=== PATIENT | male | born 1960 | race Caucasian/White ===

== ENCOUNTER 2017-10-09 10:47 | Day surgery (SDC) | payer OTHER ==
[~2017-10-09 10:47] MED LIST: BUPIVACAINE HCL 0.75% INJ/PF (7.5 MG/1 ML) 10 ML SDV ONE; CHONDR SU A NA/HYALUR INTRAOC KIT (SURGICARE) ONE; EPINEPHRINE INJ/PF 1 MG/1 ML AMPULE ONE; HYALURONIDASE INJ 150 UNIT/1 ML VIAL ONE; KETOROLAC TROMETHAMINE 0.45% 4 DROP/0.4 ML DROPERETTE OD PRN; LIDOCAINE 1%/PHENYLEPHRINE 1.5% 1 ML VIAL ONE; LIDOCAINE 2% INJ (20 MG/ML) 20 ML MDV ONE; TETRACAINE HCL 0.5% OPH SOLN 2 ML OD PRN; TOBRAMYCIN SULFATE/DEXAMETH OPH OINTMENT 3.5 GM ONE; TRYPAN BLUE 0.06 % OPH SOLN 0.5 ML DISP.SYRIN ONE
[2017-10-09] MEDS: TROPICAMIDE 1% OPH SOLN 3 ML OD PRN ×2 (11:19→13:02)
[2017-10-09] MEDS: CYCLOPENTOLATE 0.2%/PHENYLEPHRINE 1% OPH SOLN 2 ML OD PRN ×2 (11:19→13:02)
[2017-10-09] MEDS: BESIFLOXACIN HCL 0.6% OPH SUSP 5 ML BOTTLE OD PRN ×2 (11:20→13:03)
[2017-10-09] MEDS ORDERED: MIDAZOLAM 2 MG/2 ML INJ ONE ×2 (12:53→13:06)
== END 2017-10-09 14:12 | disposition home or self-care (01) ==
LOC: SC 10:47
PROVIDERS: ATTEND Internal Medicine
DX: H25.89 Other age-related cataract (principal); Z79.1 Long term (current) use of non-steroidal anti-inflammatories (NSAID); M06.9 Rheumatoid arthritis, unspecified; I10 Essential (primary) hypertension; E66.9 Obesity, unspecified; H54.8 Legal blindness, as defined in USA
CPT/HCPCS: J0171; J2250; J2370; J3470; J3490

== ENCOUNTER 2017-10-09 14:25 | Emergency (ER) | payer OTHER ==
--- NOTE | 2017-10-09 15:43 | ER Document Report ---
ED Medical Screen (RME) - General Chief Complaint: Blood Pressure Problem Stated Complaint: HIGH BLOOD PRESSURE Time Seen by Provider: 10/09/17 15:38 Mode of Arrival: Ambulatory Information source: Patient Notes: 57-year-old presented to ED for cataract surgery. When he got to the surgery center they would not do his surgery because he had blood pressure of 2010 129. States that when he went to the eye doctor to 3 weeks ago blood pressure was perfect according to the eye doctor. He states he did have her blood pressure about 25 years ago but has not been to a doctor recently and does not have a primary care doctor. He states he does have shoulder and knee pain that he has been eaten Aleve like candy. I attempted to redo the blood pressure and it was 240/139. I have greeted and performed a rapid initial assessment of this patient. A comprehensive ED assessment and evaluation of the patient, analysis of test results and completion of medical decision making process will be conducted by an additional ED providers. TRAVEL OUTSIDE OF THE [place] IN LAST 30 DAYS: No - Related Data Allergies/Adverse Reactions: No Known Allergies Allergy (Verified 10/09/17 15:37) Past Medical History - Social History Chew tobacco use (# tins/day): No Frequency of alcohol use: Occasional Drug Abuse: None - Past Medical History Cardiac Medical History: Reports: Hx Hypertension - NO CURRENT MEDS Denies: Hx Heart Attack Pulmonary Medical History: Denies: Hx Asthma Neurological Medical History: Denies: Hx Cerebrovascular Accident, Hx Seizures Renal/ Medical History: Denies: Hx Peritoneal Dialysis GI Medical History: Denies: Hx Hepatitis, Hx Hiatal Hernia, Hx Ulcer Infectious Medical History: Denies: Hx Hepatitis Past Surgical History: Denies: Hx Open Heart Surgery, Hx Pacemaker Physical Exam - Vital signs Vitals: Temp Pulse Resp BP Pulse Ox 97.8 F 81 18 201/129 H 95 10/09/17 14:34 10/09/17 14:34 10/09/17 14:34 10/09/17 14:34 10/09/17 14:34 Course - Vital Signs Vital signs: Temp Pulse Resp BP Pulse Ox 97.8 F 81 18 201/129 H 95 10/09/17 14:34 10/09/17 14:34 10/09/17 14:34 10/09/17 14:34 10/09/17 14:34
[2017-10-09 16:35] LABS: ABSOLUTE BASOPHILS # (AUTO) 0.1 10^3/uL (0.0-0.2); ABSOLUTE EOSINOPHILS # (AUTO) 0.3 10^3/uL (0.0-0.6); ABSOLUTE LYMPHOCYTES (AUTO) 1.7 10^3/uL (0.5-4.7); ABSOLUTE MONOCYTES (AUTO) 0.5 10^3/uL (0.1-1.4); BASOPHILS % (AUTO) 1.7 % (0-2); EOSINOPHILS % (AUTO) 5.1 % (0-6); HEMOGLOBIN 14.7 g/dL (13.5-17.0); LYMPHOCYTES % (AUTO) 25.2 % (13-45); MEAN CORPUSCULAR HEMOGLOBIN 30.9 pg (27.0-33.4); MEAN CORPUSCULAR HGB CONC 34.9 g/dL (32.0-36.0); MEAN CORPUSCULAR VOLUME 89 fl (80-97); MONOCYTES % (AUTO) 7.5 % (3-13); PLATELET COUNT 199 10^3/uL (150-450); RED BLOOD COUNT 4.75 10^6/uL (4.35-5.55); RED CELL DISTRIBUTION WIDTH 14.1 % (11.5-14.0); SEGMENTED NEUTROPHILS % (AUTO) 60.5 % (42-78); TOTAL CELLS COUNTED % (AUTO) 100 %; WHITE BLOOD COUNT 6.6 10^3/uL (4.0-10.5)
[2017-10-09 16:45] LABS: APPEARANCE,URINE SLIGHTLY-CLOUDY; BILIRUBIN,URINE NEGATIVE (NEGATIVE); COLOR,URINE YELLOW; GLUCOSE, URINE NEGATIVE (NEGATIVE); KETONES,URINE NEGATIVE (NEGATIVE); LEUKOCYTE ESTERASE,URINE NEGATIVE (NEGATIVE); NITRITE,URINE NEGATIVE (NEGATIVE); PROTEIN,URINE NEGATIVE (NEGATIVE); URINE SPECIFIC GRAVITY 1.018; UROBILINOGEN,URINE NEGATIVE mg/dL (<2.0)
[2017-10-09 16:56] LABS: ALANINE AMINOTRANSFERASE 26 U/L (21-72); ALBUMIN 4.2 g/dL (3.5-5.0); ALKALINE PHOSPHATASE 45 U/L (38-126); ANION GAP 12 (5-19); ASPARTATE AMINO TRANSFERASE 25 U/L (17-59); BILIRUBIN,DIRECT 0.4 mg/dL (0.0-0.4); BILIRUBIN,TOTAL 0.8 mg/dL (0.2-1.3); BLOOD UREA NITROGEN 14 mg/dL (7-20); CALCIUM 9.4 mg/dL (8.4-10.2); CARBON DIOXIDE 27 mmol/L (22-30); CHLORIDE 104 mmol/L (98-107); GLUCOSE 93 mg/dL (75-110); POTASSIUM 4.7 mmol/L (3.6-5.0); SODIUM 142.7 mmol/L (137-145); TOTAL PROTEIN 7.6 g/dL (6.3-8.2)
[2017-10-09] MEDS ORDERED: CLONIDINE HCL 0.2 MG TABLET PO ONE (17:44)
--- NOTE | 2017-10-09 17:59 | ER Document Report ---
ED General - General Chief Complaint: Blood Pressure Problem Stated Complaint: HIGH BLOOD PRESSURE Time Seen by Provider: 10/09/17 15:38 Mode of Arrival: Ambulatory Notes: Patient was about to have cataract surgery this afternoon when his blood pressure was noted to be exceptionally high and he was referred here for evaluation and treatment. Patient says he has been diagnosed in the past with high blood pressure and was on medications at one time, but just stopped going to the doctor and getting the medications. Even so, he says that when he was seen a few weeks ago to get ready to have cataract surgery, his blood pressure was "perfect". Patient does not take any medications for any medical condition at this time. Patient denies any headache or dizzy spells. No change in his vision. Denies any chest pains or shortness of breath. No swelling of the ankles. At this time, patient's only complaint is that he is hungry. Patient weighs 141 kg. TRAVEL OUTSIDE OF THE [place] IN LAST 30 DAYS: No - Related Data Allergies/Adverse Reactions: No Known Allergies Allergy (Verified 10/09/17 15:37) Past Medical History - General Information source: Patient - Social History Smoking Status: Never Smoker Chew tobacco use (# tins/day): No Frequency of alcohol use: Occasional Drug Abuse: None Family History: Reviewed & Not Pertinent Patient has suicidal ideation: No Patient has homicidal ideation: No - Past Medical History Cardiac Medical History: Reports: Hx Hypertension - NO CURRENT MEDS Denies: Hx Coronary Artery Disease, Hx Heart Attack Neurological Medical History: Denies: Hx Cerebrovascular Accident Endocrine Medical History: Denies: Hx Diabetes Mellitus Type 1, Hx Diabetes Mellitus Type 2 Musculoskeletal Medical History: Reports Hx Arthritis - Rheumatoid arthritis Review of Systems - Review of Systems Notes: REVIEW OF SYSTEMS: CONSTITUTIONAL : Denies fever. EENT: Denies eye, ear, nose or mouth or throat pain or other symptoms. CARDIOVASCULAR: Denies chest pain. RESPIRATORY: Denies cough, chest congestion, or shortness of breath. GASTROINTESTINAL: Denies abdominal pain or nausea, vomiting, or diarrhea. GENITOURINARY: Denies difficulty or painful urinating, urinary frequency, blood in urine. MUSCULOSKELETAL: Denies back or neck pain. Does have joint pain secondary to rheumatoid arthritis. SKIN: Denies rash or skin lesions. NEUROLOGICAL: Denies LOC or altered mental status. Denies headache. Denies sensory loss or motor deficits. ALL OTHER SYSTEMS REVIEWED AND NEGATIVE. Physical Exam - Vital signs Vitals: Temp Pulse Resp BP Pulse Ox 97.8 F 81 18 201/129 H 95 10/09/17 14:34 10/09/17 14:34 10/09/17 14:34 10/09/17 14:34 10/09/17 14:34 Interpretation: Hypertensive - Triage blood pressure 201/129. - Notes Notes: PHYSICAL EXAMINATION: GENERAL: Well-appearing, in no acute distress. Blood pressure 215/125. Patient says he feels fine with absolutely no complaints and was ready to get his cataract removed when he was told his blood pressure was so high they could not perform the surgery. HEAD: Atraumatic, normocephalic. EYES: Pupils equal round and reactive to light, extraocular movements intact. ENT: oropharynx clear without exudates. Moist mucous membranes. NECK: Normal range of motion, supple. LUNGS: Breath sounds clear and equal bilaterally. HEART: Regular rate and rhythm without murmurs. ABDOMEN: Soft, nontender. No guarding or rebound. No masses. BACK: No tenderness throughout entire back. EXTREMITIES: Normal range of motion without pain. NEUROLOGICAL: Normal speech, normal gait. Normal sensory, motor, and reflex exams. Awake, alert, and oriented x3. Cranial nerves normal. SKIN: Warm, dry, no rashes. Course - Re-evaluation Re-evalutation: 10/09/17 19:33 Lab results were all normal. Patient's blood pressure began to decline and I felt that it was reasonable to let him go home and wrote him a prescription for 30-day supply of a combination of lisinopril and hydrochlorothiazide. - Vital Signs Vital signs: Temp Pulse Resp BP Pulse Ox 98.0 F 81 16 175/109 H 97 10/09/17 18:47 10/09/17 14:34 10/09/17 18:47 10/09/17 18:47 10/09/17 18:47 - Laboratory Result Diagrams: 10/09/17 16:09 10/09/17 16:09 Laboratory results interpreted by me: 10/09/17 16:09 RDW 14.1 H 10/09/17 18:01 Renal function is normal. All the labs are essentially normal. Discharge - Discharge Clinical Impression: Hypertension Condition: Stable Disposition: HOME, SELF-CARE Additional Instructions: HIGH BLOOD PRESSURE REQUIRING TREATMENT: Your blood pressure is high. This is called "hypertension." Today's reading was 201/129 (normal is less than 140/90). Your history and exam suggest that this is not a temporary problem. You need treatment of your blood pressure. If left untreated, high blood pressure greatly increases your risk of heart attack and stroke. Please don't ignore this problem. If you have blood pressure medicine but aren't using it regularly, start taking it again. Some simple things you can do to help are: Get some aerobic exercise for at least 20 minutes on a daily basis. (See your doctor before beginning any new exercise program.) Eat a low-fat diet. Lose excess weight. Avoid salty foods and avoid adding salt to any of the foods you eat. Avoid diet pills, decongestants, "energizing" herbs, and other medicines that elevate blood pressure. There are many different medicines that treat blood pressure. If your medication causes unpleasant side effects, call your doctor. There are others you can try. Treating hypertension is a life-long investment in your health. CLONIDINE (CATAPRES): Clonidine is blood-pressure medicine. It works in your brain, making the nervous system relax the blood vessels. This medicine can also be used for symptoms of narcotic withdrawal. Clonidine frequently causes dry mouth, drowsiness, and dizziness. These symptoms go away as you continue to use it. Rest for the first couple of days. Don't drive or use machinery until you're back to normal. Never stop clonidine suddenly! There can be a "rebound" severe increase in blood pressure, headache, and agitation. Be sure you always have enough of the medicine. Call the doctor if you have any new symptoms such as skin rash, weakness, severe lightheadedness, chest pain, headache, or depression. HYDROCHLOROTHIAZIDE: Hydrochlorothiazide is a diuretic medication. Diuretics are often called "water pills." The medicine flushes excess salt and water from the body. Diuretics are used for fluid retention (such as heart failure, cirrhosis, or lung disease) and for blood pressure control. Often hydrochlorothiazide is combined with other medicines in the same pill. Most patients prefer to take the medicine in the morning. Hydrochlorothiazide makes extra urine, which can be a problem if you take the pill at night. Diuretics make you lose potassium. Sometimes a good diet with plenty of fruit is enough to replace it. Sometimes a potassium supplement is necessary. Or, hydrochlorothiazide may be combined with medicines that prevent potassium loss. We usually recommend a blood potassium test in a few weeks. Contact your doctor if you develop extreme fatigue, muscle weakness, lethargy, confusion, or palpitations. Combined with ANGIOTENSIN CONVERTING ENZYME INHIBITOR MEDICATION: "BENIGNO inhibitor" drugs are used to lower high blood pressure (or to reduce the "work" of the heart in patients with heart failure). These drugs block an enzyme that makes your blood vessels constrict and makes you retain salt. The result is lower blood pressure. BENIGNO inhibitors cause few side effects. The most common side effect is a dry nagging cough. Occasionally, lightheadedness may occur while you get used to the medicine. Some patients may retain extra potassium (this is a problem if you are taking potassium supplements, potassium-containing salt substitutes, or a potassium-retaining drug such as triamterene, spironolactone, or amiloride) . If you are taking lithium, the lithium level must be rechecked after starting an BENIGNO inhibitor. BENIGNO inhibitors should NOT be used during . Contact the doctor or return if you develop severe lightheadedness, wheeze , weakness, palpitations or other new symptoms. FOLLOW-UP CARE: If you have been referred to a physician for follow-up care, call the physician s office for an appointment as you were instructed or within the next two days. If you experience worsening or a significant change in your symptoms, notify the physician immediately or return to the Emergency Department at any time for re-evaluation. Have your blood pressure rechecked in 5-7 days by your primary care provider to determine if you need to have additional medicines or adjust your dosage of your current medications. Prescriptions: Lisinopril/Hydrochlorothiazide [Lisinopril-Hctz 20-12.5 mg Tab] 1 each PO QAM # 30 tablet
[2017-10-09 18:51] VITALS: BP 175/109
== END 2017-10-09 18:51 | disposition home or self-care (01) ==
LOC: ER 14:25
DX: I10 Essential (primary) hypertension (principal)
CPT/HCPCS: 36415; 80053; 81001; 85025; 99283

== ENCOUNTER 2017-10-30 11:09 | Day surgery (SDC) | payer OTHER ==
[~2017-10-30 11:09] MED LIST changes: -KETOROLAC TROMETHAMINE 0.45% 4 DROP/0.4 ML DROPERETTE OD PRN; +KETOROLAC TROMETHAMINE 0.45% 4 DROP/0.4 ML DROPERETTE OS PRN; -LIDOCAINE 2% INJ (20 MG/ML) 20 ML MDV ONE; +LIDOCAINE 2% INJ-PF (20 MG/ML) 10 ML AMPUL ONE; -TETRACAINE HCL 0.5% OPH SOLN 2 ML OD PRN
[2017-10-30] MEDS: CYCLOPENTOLATE 0.2%/PHENYLEPHRINE 1% OPH SOLN 2 ML OS PRN ×3 (11:33→11:54)
[2017-10-30] MEDS: TETRACAINE HCL 0.5% OPH SOLN 2 ML OS PRN ×3 (11:33→12:14)
[2017-10-30] MEDS: TROPICAMIDE 1% OPH SOLN 3 ML OS PRN ×3 (11:34→11:54)
[2017-10-30] MEDS: BESIFLOXACIN HCL 0.6% OPH SUSP 5 ML BOTTLE OS PRN ×3 (11:34→12:45)
[2017-10-30] MEDS ORDERED: MIDAZOLAM 2 MG/2 ML INJ ONE (11:53)
[2017-10-30] MEDS ORDERED: FENTANYL CITRATE INJ/PF 100 MCG/2 ML AMPUL ONE (11:53)
[2017-10-30] MEDS ORDERED: METOPROLOL TARTRATE PF/INJ 5 MG/5 ML SDV IV ONE (12:23)
--- NOTE | 2017-10-30 22:20 | [facility] OPERATIVE REPORT E ---
[facility] Operative Report NAME: GENEVA MICHEL AGE: 57Y DATE OF SURGERY: 10/30/2017 ROOM: PREOPERATIVE DIAGNOSES: 1. CATARACT OF THE LEFT EYE. 2. MATURE WHITE CATARACT OF THE LEFT EYE. POSTOPERATIVE DIAGNOSES: 1. CATARACT OF THE LEFT EYE. 2. MATURE WHITE CATARACT OF THE LEFT EYE. OPERATION: Complex cataract extraction with the use of Trypan blue dye due to maturity of the lens and poor visualization of the anterior capsule. SURGEON: TYRA TIMMONS M.D. ANESTHESIA: A Retrobulbar block was performed using 2% lidacain 0.75% Marcaine and 50/50 mixture with 50 units of Vitrase COMPLICATIONS: None. ESTIMATED BLOOD LOSS: None. PROCEDURE: After obtaining appropriate consent, the patient left eye was prepped and draped in sterile fashion as well as the surgeon in a sterile manner, and the cataract surgery was started. First, the paracentesis blade was used to make a small side-port incision. Viscoelastic was used to inflate the anterior chamber. Next a 2.4 mm incision was made using a 2.4 mm keratome. Following this, a continuous capsulorhexis was made using a cystitome and Utrata forceps. Following this, hydrodissection was carried out to make the lens fully loose and mobile, and it was rotated 90 degrees. Following this, a divide and conquer technique was used to phacoemulsify the lens with a CDE of approximately 21.74. The remaining cortex was removed with irrigation/aspiration. Provisc was instilled into the capsular bag to inflate the bag. A SN60WF lens of 23.0 diopters was placed. The remaining viscoelastic material was removed with irrigation/aspiration. Following this, the incision was found to be watertight. Besivance was instilled into the eye and a protective shield was placed over the eye. The patient returned to the postoperative recovery in stable condition. Prior to making the capsulorhexis due to the lens being a mature white cataract in an absence of a red reflex, Trypan blue dye was used to stain the anterior capsule to perform the capsulorhexis. DICTATING PHYSICIAN: TYRA TIMMONS M.D. 1953M [id number] PHY#: [id number] ID: [id number] JOB#: [id number] ACCT: [id number] cc:TYRA TIMMONS M.D. > CLAUDIA
--- NOTE | 2017-11-03 10:47 | DISCHARGE SUMMARY E ---
Discharge Summary NAME: GENEVA MICHEL : 1960 AGE: 57Y ADMITTED: 10/30/2017 DISCHARGED: 10/30/2017 FINAL DIAGNOSIS: MATURE CATARACT OF THE LEFT EYE. HOSPITAL COURSE: This is a 57-year-old male who underwent complex cataract extraction with use of Trypan blue dye. He underwent cataract surgery because he was having difficulty seeing faces and could not cook, drive or watch television. DISCHARGE INSTRUCTIONS: He is to be on a regular diet. No bending at his waist, no heavy lifting. Tobradex was instilled into the eye along with Besivance and a pressure patch was placed due to retrobulbar block. He is to leave this on until tomorrow morning and then take it off. Again, he is supposed to be on a regular diet. No bending at his waist, no heavy lifting. I will see him for a 1-day postoperative tomorrow. DICTATING PHYSICIAN: TYRA TIMMONS M.D. [id number] PHY#: [id number] ID: [id number] JOB#: [id number] ACCT: [id number] cc:TYRA TIMMONS M.D. >
== END 2017-10-30 14:02 | disposition home or self-care (01) ==
LOC: SC 11:09
PROVIDERS: ATTEND Internal Medicine
DX: H25.89 Other age-related cataract (principal); M10.9 Gout, unspecified; M06.9 Rheumatoid arthritis, unspecified; I10 Essential (primary) hypertension; E66.9 Obesity, unspecified; Z79.1 Long term (current) use of non-steroidal anti-inflammatories (NSAID); Z79.899 Other long term (current) drug therapy; Z68.41 Body mass index [BMI] 40.0-44.9, adult
CPT/HCPCS: 66982; V2632; J2250; J3490 ×6; J0171; J3010; J3470; J2370; 142

== ENCOUNTER 2017-11-24 10:15 | Day surgery (SDC) | payer OTHER ==
[~2017-11-24 10:15] MED LIST changes: -BUPIVACAINE HCL 0.75% INJ/PF (7.5 MG/1 ML) 10 ML SDV ONE; -CHONDR SU A NA/HYALUR INTRAOC KIT (SURGICARE) ONE; -EPINEPHRINE INJ/PF 1 MG/1 ML AMPULE ONE; -HYALURONIDASE INJ 150 UNIT/1 ML VIAL ONE; +KETOROLAC TROMETHAMINE 0.45% 4 DROP/0.4 ML DROPERETTE OD PRN; -KETOROLAC TROMETHAMINE 0.45% 4 DROP/0.4 ML DROPERETTE OS PRN; -LIDOCAINE 1%/PHENYLEPHRINE 1.5% 1 ML VIAL ONE; -LIDOCAINE 2% INJ-PF (20 MG/ML) 10 ML AMPUL ONE; +MIDAZOLAM 2 MG/2 ML INJ ONE; -TOBRAMYCIN SULFATE/DEXAMETH OPH OINTMENT 3.5 GM ONE; -TRYPAN BLUE 0.06 % OPH SOLN 0.5 ML DISP.SYRIN ONE
[2017-11-24] MEDS ORDERED: EPINEPHRINE INJ/PF 1 MG/1 ML AMPULE ONE (11:03)
[2017-11-24] MEDS ORDERED: LIDOCAINE 1% INJ-PF (10 MG/ML) 30 ML SDV ONE (11:03)
[2017-11-24] MEDS ORDERED: CHONDR SU A NA/HYALUR INTRAOC KIT (SURGICARE) ONE (11:03)
[2017-11-24] MEDS ORDERED: LIDOCAINE 2% INJ-PF (20 MG/ML) 10 ML AMPUL ONE ×2 (11:05→12:43)
[2017-11-24] MEDS ORDERED: LIDOCAINE 1%/PHENYLEPHRINE 1.5% 1 ML VIAL ONE (11:05)
[2017-11-24] MEDS ORDERED: HYALURONIDASE INJ 150 UNIT/1 ML VIAL ONE (11:05)
[2017-11-24] MEDS ORDERED: BUPIVACAINE HCL 0.75% INJ/PF (7.5 MG/1 ML) 10 ML SDV ONE (11:05)
[2017-11-24] MEDS: BESIFLOXACIN HCL 0.6% OPH SUSP 5 ML BOTTLE OD PRN ×3 (11:19→13:13)
[2017-11-24] MEDS: CYCLOPENTOLATE 0.2%/PHENYLEPHRINE 1% OPH SOLN 2 ML OD PRN ×4 (11:19→11:49)
[2017-11-24] MEDS: TROPICAMIDE 1% OPH SOLN 3 ML OD PRN ×4 (11:19→11:49)
[2017-11-24] MEDS: TETRACAINE HCL 0.5% OPH SOLN 2 ML OD PRN ×2 (11:20→11:39)
[2017-11-24] MEDS ORDERED: PROPOFOL INJ 200 MG/20 ML VIAL IV ONE (12:43)
[2017-11-24] MEDS ORDERED: TRYPAN BLUE 0.06 % OPH SOLN 0.5 ML DISP.SYRIN ONE (12:51)
[2017-11-24] MEDS ORDERED: POVIDONE-IODINE 5% OPH PREP SOLN 30 ML ONE (12:53)
[2017-11-24] MEDS ORDERED: TOBRAMYCIN SULFATE/DEXAMETH OPH OINTMENT 3.5 GM ONE (13:13)
[2017-11-24] MEDS ORDERED: FENTANYL CITRATE INJ/PF 100 MCG/2 ML AMPUL ONE (13:22)
--- NOTE | 2017-11-24 17:06 | [facility] OPERATIVE REPORT E ---
[facility] Operative Report NAME: GENEVA MICHEL AGE: 57Y DATE OF SURGERY: 11/24/2017 ROOM: PREOPERATIVE DIAGNOSES: MATURE WHITE CATARACT OF THE RIGHT EYE. POSTOPERATIVE DIAGNOSES: MATURE WHITE CATARACT OF THE RIGHT EYE. OPERATION: Complex cataract extraction with the use of Trypan blue dye due to poor visualization of the anterior capsule. SURGEON: TYRA TIMMONS M.D. ANESTHESIA: Topical with a retrobulbar block of 2% lidocaine, 0.75% Marcaine and 35 units of hyalonurdase. ESTIMATED BLOOD LOSS: Less than 2 mL. PROCEDURE: After obtaining appropriate consent, the patient right eye was prepped and draped in sterile fashion as well as the surgeon in a sterile manner, and the cataract surgery was started. First, the paracentesis blade was used to make a small side-port incision. Viscoelastic was used to inflate the anterior chamber. Next a 2.4 mm incision was made using a 2.4 mm keratome. Following this, a continuous capsulorhexis was made using a cystitome and Utrata forceps. Following this, hydrodissection was carried out to make the lens fully loose and mobile, and it was rotated 90 degrees. Following this, a divide and conquer technique was used to phacoemulsify the lens with a CDE of approximately 30.39. The remaining cortex was removed with irrigation/aspiration. Provisc was instilled into the capsular bag to inflate the bag. A SN60WF lens of 20.5 diopters was placed. The remaining viscoelastic material was removed with irrigation/aspiration. After this the Malyugin ring was removed. Following this, the incision was found to be watertight. Besivance was instilled into the eye and a protective shield was placed over the eye. Tobradex ointment was placed in the eye and a pressure patch was placed with a rigid shield. The patient returned to the postoperative recovery in stable condition. Prior to making the rhexis , a Trypan blue dye was used to stain the anterior capsule due to poor visualization. This was removed at the end of the case. DICTATING PHYSICIAN: TYRA TIMMONS M.D. [id number] PHY#: [id number] ID: [id number] JOB#: [id number] ACCT: [id number] cc:TYRA TIMMONS M.D. > MTDNona
--- NOTE | 2017-11-24 17:11 | [facility] DISCHARGE SUMMARY E ---
[facility] Discharge Summary NAME: GENEVA MICHEL AGE: 57Y ADMITTED: 11/24/2017 DISCHARGED: This is a 67-year-old male who underwent complex cataract extraction with use of Trypan blue dye. DIAGNOSES: 1. Mature white cataract of the right eye requiring Trypan blue dye due to poor visualization in the anterior capsule. HOSPITAL COURSE: Patient underwent surgery because he was unable to see facial features with his right eye. DISCHARGE INSTRUCTIONS: He should be on a regular diet. No bending at his waist. No heavy lifting. He should use his Besivance, Ilevro, and Durezol at 3 p.m. and 8 p.m. and sleep with a rigid shield. I will see him for his one-day postoperative tomorrow. DICTATING PHYSICIAN: TYRA TIMMONS M.D. [id number] PHY#: [id number] ID: [id number] JOB#: [id number] ACCT: [id number] cc:TYRA TIMMONS M.D. > MTDD
== END 2017-11-24 14:11 | disposition home or self-care (01) ==
LOC: SC 10:15
PROVIDERS: ATTEND Internal Medicine
DX: H25.89 Other age-related cataract (principal); Z96.1 Presence of intraocular lens; H40.89 Other specified glaucoma; I10 Essential (primary) hypertension; M19.90 Unspecified osteoarthritis, unspecified site
CPT/HCPCS: 66984; V2632; J3490 ×6; J0171; J3010; J2704; J3470; J2370; 142; J2250